=== PATIENT | male | born 1985 | race Asian ===

== ENCOUNTER 2017-10-06 07:06 | Observation (INO) | payer OTHER ==
[2017-10-06] VITALS (7 sets, daily range): BP systolic 100–124; BP diastolic 65–74; PULSE 74–102; TEMP 36.3–38.1; O2SAT 97–100; Ht 162.6 cm; Wt 61.3 kg
[~2017-10-06] VITALS: Ht 162.6 cm; Wt 61.3 kg
[2017-10-06] MEDS ORDERED: ONDANSETRON INJ 2 MG/ML 2 ML VIAL IV STA (07:23)
[2017-10-06] MEDS ORDERED: SODIUM CHLORIDE 0.9% 1000ML 1,000 ML IV STA ×2 (07:23→09:41)
[2017-10-06] MEDS ORDERED: HYDROmorphone INJ 0.5 MG/0.5 ML SYR IV PRN (07:30)
--- NOTE | 2017-10-06 07:53 | EMERGENCY ROOM VISIT NOTE ---
History Report prepared by Carlos Enrique: Frandy Garrett Under the Supervision of: Dr. Cullen Gillespie M.D. First contact with patient: 07:17 Chief Complaint: ABDOMINAL PAIN Stated Complaint: SEVERE ABDOMINAL PAIN Nursing Triage Summary: Pt reports lower abd pain that woke him at 0400. Moved bowels at that time, normal. Went back to bed and woke back up at 0600 with pain. Emesis x 1. Denies nausea at present. Took Tylenol at 0600. History of Present Illness The patient is a 32 year old male who presents to the Emergency Room with complaints of constant lower abdominal pain that began early this morning at 0400, 3.5 hours prior to arrival. He rates his current pain as a 5/[address] his way to the department the patient notes getting nauseous and vomiting on the side of the road, the movement in the car hurt his stomach. He denies any radiation of the pain into his back. The patient notes a similar episode that occurred two months ago but claims that this pain is much worse. Patient denies any associated LOC, headache, fevers, chills, diaphoresis, visual changes, neck pain, chest pain, breathing difficulties, back pain, melena , hematochezia, urinary symptoms, numbness, weakness, lymphadenopathy, rash, or other complaints. Source of History: patient Onset: 3.5 hours [employer]SE [employer] Position: abdomen Timing: constant Associated Symptoms: + vomiting, No back pain Review of Systems See HPI for pertinent positives and negatives. A total of ten systems were reviewed and were otherwise negative. Past Medical & Surgical Patient denies any past medical/surgical histories. Family History Cancer Diabetes mellitus Social History Smoking Status: Never Smoker Housing Status: lives with roommate Occupation Status: employed, [employer] student Current/Historical Medications Scheduled Amoxicillin & Pot Clavulanate (Augmentin 875-125 mg), 875 MG PO BID Scheduled PRN Oxycodone/Acetaminophen 5MG/325MG (Percocet 5MG/325MG), 1-2 TABLETS PO Q4H PRN for Pain Miscellaneous Medications Acetaminophen Tab (Tylenol), 325 MG PO Allergies Coded Allergies: No Known Allergies (Unverified , 10/06/17) Physical Exam Vital Signs Date Time Temp Pulse Resp B/P (MAP) Pulse Ox O2 Delivery O2 Flow Rate FiO2 1/23/18 13:01 90 14 10/06/17 13:01 89 14 103/68 100 10/06/17 13:00 37.1 94 15 103/68 (76) 100 Nasal Cannula 2 10/06/17 12:56 92 12 10/06/17 12:56 90 12 102/60 100 18 12:51 90 13 105/57 100 10/06/17 12:51 90 13 10/06/17 12:50 91 16 105/57 (63) 100 Nasal Cannula 2 10/06/17 12:46 87 17 10/06/17 12:46 87 17 103/67 100 10/06/17 12:41 88 13 114/57 100 10/06/17 12:41 90 13 10/06/17 12:40 92 12 100 10/06/17 12:40 94 12 10/06/17 12:36 100/65 10/06/17 12:35 87 18 10/06/17 12:35 86 18 100 10/06/17 12:31 108/64 10/06/17 12:30 91 17 10/06/17 12:30 93 17 100 10/06/17 12:26 103/66 10/06/17 12:25 96 20 100 10/06/17 12:25 97 20 10/06/17 12:21 110/65 10/06/17 12:20 37.7 95 16 110/65 100 Oxymask 10 10/06/17 12:20 94 17 100 10/06/17 12:20 92 17 10/06/17 10:15 101 18 126/70 96 Room Air 10/06/17 09:22 109 18 118/75 99 Room Air 10/06/17 08:18 94 16 116/79 95 Room Air 10/06/17 08:01 90 10/06/17 07:12 36.7 82 18 101/69 100 Room Air Physical Exam GENERAL: Awake, alert, uncomfortable-appearing, in no distress HENT: Normocephalic, atraumatic. Oropharynx unremarkable. EYES: Normal conjunctiva. Sclera non-icteric. NECK: Supple. No nuchal rigidity. FROM. No JVD. RESPIRATORY: Clear to auscultation. CARDIAC: Regular rate, normal rhythm. Extremities warm and well perfused. Pulses equal. ABDOMEN: Soft, non-distended. Tenderness to palpation with rebounding in the RLQ.. No masses. RECTAL: Deferred. MUSCULOSKELETAL: Chest examination reveals no tenderness. The back is symmetrical on inspection without obvious abnormality. There is no CVA tenderness to palpation. No joint edema. LOWER EXTREMITIES: Calves are equal size bilaterally and non-tender. No edema. No discoloration. NEURO: Normal sensorium. No sensory or motor deficits noted. SKIN: No rash or jaundice noted. Medical Decision & Procedures ER Provider Diagnostic Interpretation: Radiology results as stated below per my review and radiologist interpretation: ABDOMEN AND PELVIS CT WITH IV CONTRAST CT DOSE: 333.15 mGycm HISTORY: Acute right lower quadrant abdominal pain with vomiting. Clinical concern for acute appendicitis. RLQ pain, vomiting. ? appy TECHNIQUE: Multiaxial CT images of the abdomen and pelvis were performed following the use of intravenous contrast. 95 mL Optiray 320 IV contrast was administered. A dose lowering technique was utilized adhering to the principles of ALARA. COMPARISON STUDY: None. FINDINGS: Diaphragmatic based 4 mm nodule of the left lower lobe as seen on image 45 series 3. Minimal dependent subsegmental left basilar atelectasis. There is no pneumatosis or pneumoperitoneum. The imaged inferior cardiac chambers are unremarkable. The liver, gallbladder, spleen, pancreas and adrenal glands are within normal limits. The kidneys, and urinary bladder are unremarkable. There is mild dilation of the distal right ureter, likely reactive secondary to inflammatory changes of the pelvis as below. Prostate is unremarkable. Aorta is normal in course and caliber. No bulky adenopathy. No bowel obstruction. Mild amount of free pelvic fluid is noted in addition to moderate right lower quadrant mesenteric inflammatory change with mildly prominent right lower quadrant mesenteric lymph nodes measuring up to 1.4 x 0.9 cm. The appendix is dilated and fluid-filled with wall thickening and mucosal hyperemia measuring up to 12 mm transversely. No evidence of perforation or right lower quadrant abscess. Soft tissues are unremarkable. Bones appear intact. IMPRESSION: 1. Findings compatible with acute uncomplicated appendicitis. No evidence of abscess or perforation. 2. Mild reactive free pelvic fluid and right lower quadrant mesenteric adenopathy. 3. No bowel obstruction. 4. 4 mm solid pulmonary nodule of the left lower lobe, likely benign. Electronically signed by: Tom Bravo M.D. 10/06/2017 9:32 AM Dictated Date/Time: 10/06/2017 9:22 AM Laboratory Results 10/06/17 07:50 Red Blood Count 5.20, Mean Corpuscular Volume 90.0, Mean Corpuscular Hemoglobin 31.2, Mean Corpuscular Hemoglobin Concent 34.6, Mean Platelet Volume 9.6, Neutrophils (%) (Auto) 87.2, Lymphocytes (%) (Auto) 9.5, Monocytes (%) (Auto) 2.8, Eosinophils (%) (Auto) 0.1, Basophils (%) (Auto) 0.1, Neutrophils # (Auto) 10.51, Lymphocytes # (Auto) 1.15, Monocytes # (Auto) 0.34, Eosinophils # (Auto) 0.01, Basophils # (Auto) 0.01 10/06/17 07:50 Test 10/06/17 07:50 10/06/17 08:00 White Blood Count 12.06 K/uL (4.8-10.8) Red Blood Count 5.20 M/uL (4.7-6.1) Hemoglobin 16.2 g/dL (14.0-18.0) Hematocrit 46.8 % (42-52) Mean Corpuscular Volume 90.0 fL (80-100) Mean Corpuscular Hemoglobin 31.2 pg (25-34) Mean Corpuscular Hemoglobin Concent 34.6 g/dl (32-36) Platelet Count 201 K/uL (130-400) Mean Platelet Volume 9.6 fL (7.4-10.4) Neutrophils (%) (Auto) 87.2 % Lymphocytes (%) (Auto) 9.5 % Monocytes (%) (Auto) 2.8 % Eosinophils (%) (Auto) 0.1 % Basophils (%) (Auto) 0.1 % Neutrophils # (Auto) 10.51 K/uL (1.4-6.5) Lymphocytes # (Auto) 1.15 K/uL (1.2-3.4) Monocytes # (Auto) 0.34 K/uL (0.11-0.59) Eosinophils # (Auto) 0.01 K/uL (0-0.5) Basophils # (Auto) 0.01 K/uL (0-0.2) RDW Standard Deviation 40.8 fL (36.4-46.3) RDW Coefficient of Variation 12.4 % (11.5-14.5) Immature Granulocyte % (Auto) 0.3 % Immature Granulocyte # (Auto) 0.04 K/uL (0.00-0.02) Anion Gap 8.0 mmol/L (3-11) Est Creatinine Clear Calc Drug Dose 93.5 ml/min Estimated GFR () 122.3 Estimated GFR (Non- 105.5 BUN/Creatinine Ratio 19.5 (10-20) Calcium Level 9.5 mg/dl (8.5-10.1) Total Bilirubin 0.8 mg/dl (0.2-1) Direct Bilirubin 0.1 mg/dl (0-0.2) Aspartate Amino Transf (AST/SGOT) 17 U/L (15-37) Alanine Aminotransferase (ALT/SGPT) 24 U/L (12-78) Alkaline Phosphatase 50 U/L (45-117) Total Protein 8.6 gm/dl (6.4-8.2) Albumin 4.4 gm/dl (3.4-5.0) Lipase 189 U/L (73-393) Urine Color YELLOW Urine Appearance CLEAR (CLEAR) Urine pH 7.5 (4.5-7.5) Urine Specific [place] 1.024 (1.000-1.030) Urine Protein NEG (NEG) Urine Glucose (UA) NEG (NEG) Urine Ketones TRACE (NEG) Urine Occult Blood NEG (NEG) Urine Nitrite NEG (NEG) Urine Bilirubin NEG (NEG) Urine Urobilinogen NEG (NEG) Urine Leukocyte Esterase NEG (NEG) Laboratory results reviewed by me Medications Administered Medications (Trade) Dose Ordered Sig/Yogi Route Start Time Stop Time Status Last Admin Dose Admin Sodium Chloride 1,000 ml @ 999 mls/hr Q1H1M STAT IV 10/06/17 07:23 10/06/17 08:23 DC 10/06/17 07:56 999 MLS/HR Ondansetron HCl (Zofran Inj) 4 mg NOW STAT IV 10/06/17 07:23 10/06/17 07:25 DC 10/06/17 07:55 4 MG Hydromorphone HCl (Dilaudid Inj) 0.5 mg Q15M PRN IV 10/06/17 07:30 10/20/17 07:29 10/06/17 07:56 0.5 MG Sodium Chloride 1,000 ml @ 999 mls/hr Q1H1M STAT IV 10/06/17 09:41 10/06/17 10:41 DC 10/06/17 10:31 999 MLS/HR Cefoxitin Sodium 2000 mg/Dextrose 60 ml @ 120 mls/hr TODAY@1000 IV 10/06/17 10:00 10/06/17 10:29 DC 10/06/17 10:14 120 MLS/HR Lidocaine/ Epinephrine (Xylocaine/Epine 1% Inj) 20 ml STK-MED ONCE .ROUTE 10/06/17 10:13 10/06/17 10:14 DC 10/06/17 11:50 11 ML ED Course 0719: The patient was evaluated in room A11. A complete history and physical exam was performed. 0723: Ordered Zofran 4 mg IV, Sodium Chloride 1000 mL @ 999 mL/hr IV. 0730: Ordered Dilaudid 0.5 mg IV. 0941: Ordered Sodium Chloride 1000 mL @ 999 mL/hr IV, Cefoxitin Sodium 2000 mg IV. 0942: I checked on the patient at this time. He is feeling better. 44: I discussed the case with Leighton Harper PA-C. He will evaluate the patient for further treatment. Medical Decision Triage Nursing notes reviewed and agree them. The patient's history was concerning for abdominal pain. Differential diagnosis: Etiologies such as appendicitis, diverticulitis, PUD, biliary pathology, UTI, pancreatitis, obstruction, mesenteric ischemia, aortic pathology, infections, inflammatory bowel disease, renal colic, as well as others were entertained. Physical examination findings: As above. ER treatment provided: IV normal saline boluses IV Zofran IV Dilaudid On reassessment the patient felt better. IV Mefoxin Diagnostics interpreted by me: The labs revealed a mild leukocytosis on CBC. Chemistry panel unremarkable. Imaging studies: CT scan as above The patient has acute appendicitis. Consultation: A consultation was placed with the general surgery team. The case was discussed and diagnostics were reviewed. The patient was evaluated in the ER for further treatment. Blood Pressure Screening Patient's blood pressure: Normal blood pressure Consults Time Called: [phone] Consulting Physician: Leighton Harper PA-C Returned Call: [phone] I discussed the case with Leighton Harper PA-C. He will evaluate the patient for further treatment. Impression Primary Impression: Acute appendicitis Scribe Attestation The scribe's documentation has been prepared under my direction and personally reviewed by me in its entirety. I confirm that the note above accurately reflects all work, treatment, procedures, and medical decision making performed by me. Departure Information Dispostion Being Evaluated By Surgeon Prescriptions Amoxicillin & Pot Clavulanate (Augmentin 875-125 mg) 1 Tab Tab 875 MG PO BID, #10 TAB Prov: Leighton Martienz JR.,RASHAUN 10/06/17 Oxycodone/Acetaminophen 5MG/325MG (PERCOCET 5MG/325MG) Tab 1-2 TABLETS PO Q4H Y for Pain, #15 TAB Prov: Leighton Martinez JR.,ESTEFANYC 10/06/17 Referrals No Doctor, Assigned (PCP) Patient Instructions [facility]
[2017-10-06 08:05] LABS: BASO % 0.1 %; BASO ABS # 0.01 K/uL (0-0.2); EOS % 0.1 %; EOS ABS # 0.01 K/uL (0-0.5); HEMATOCRIT 46.8 % (42-52); HEMOGLOBIN 16.2 g/dL (14.0-18.0); IG# 0.04 K/uL (0.00-0.02); LYMPH % 9.5 %; LYMPH ABS # 1.15 K/uL (1.2-3.4); MEAN CORPUSCULAR HEMOGLOBIN 31.2 pg (25-34); MEAN CORPUSCULAR HGB CONC 34.6 g/dl (32-36); MEAN PLATELET VOLUME 9.6 fL (7.4-10.4); MONO % 2.8 %; MONO ABS # 0.34 K/uL (0.11-0.59); NEUT % 87.2 %; NEUT ABS # 10.51 K/uL (1.4-6.5); PLATELET COUNT 201 K/uL (130-400); RED CELL DISTRIBUTION WIDTH CV 12.4 % (11.5-14.5); RED CELL DISTRIBUTION WIDTH SD 40.8 fL (36.4-46.3); WHITE BLOOD COUNT 12.06 K/uL (4.8-10.8)
[2017-10-06] MEDS ORDERED: ACET325T96 PO (08:17)
[2017-10-06 08:24] LABS: ALBUMIN 4.4 gm/dl (3.4-5.0); CALCIUM 9.5 mg/dl (8.5-10.1); CREATININE 0.95 mg/dl (0.60-1.40); POTASSIUM 3.5 mmol/L (3.5-5.1)
[2017-10-06 08:27] LABS: TOTAL PROTEIN 8.6 gm/dl (6.4-8.2)
[2017-10-06] MEDS ORDERED: OPTIRAY 320 IV PRN (09:30)
--- NOTE | 2017-10-06 09:33 | DIAGNOSTIC IMAGING REPORT ---
ABDOMEN AND PELVIS CT WITH IV CONTRAST CT DOSE: 333.15 mGycm HISTORY: Acute right lower quadrant abdominal pain with vomiting. Clinical concern for acute appendicitis. RLQ pain, vomiting. ? appy TECHNIQUE: Multiaxial CT images of the abdomen and pelvis were performed following the use of intravenous contrast. 95 mL Optiray 320 IV contrast was administered. A dose lowering technique was utilized adhering to the principles of ALARA. COMPARISON STUDY: None. FINDINGS: Diaphragmatic based 4 mm nodule of the left lower lobe as seen on image 45 series 3. Minimal dependent subsegmental left basilar atelectasis. There is no pneumatosis or pneumoperitoneum. The imaged inferior cardiac chambers are unremarkable. The liver, gallbladder, spleen, pancreas and adrenal glands are within normal limits. The kidneys, and urinary bladder are unremarkable. There is mild dilation of the distal right ureter, likely reactive secondary to inflammatory changes of the pelvis as below. Prostate is unremarkable. Aorta is normal in course and caliber. No bulky adenopathy. No bowel obstruction. Mild amount of free pelvic fluid is noted in addition to moderate right lower quadrant mesenteric inflammatory change with mildly prominent right lower quadrant mesenteric lymph nodes measuring up to 1.4 x 0.9 cm. The appendix is dilated and fluid-filled with wall thickening and mucosal hyperemia measuring up to 12 mm transversely. No evidence of perforation or right lower quadrant abscess. Soft tissues are unremarkable. Bones appear intact. IMPRESSION: 1. Findings compatible with acute uncomplicated appendicitis. No evidence of abscess or perforation. 2. Mild reactive free pelvic fluid and right lower quadrant mesenteric adenopathy. 3. No bowel obstruction. 4. 4 mm solid pulmonary nodule of the left lower lobe, likely benign. Electronically signed by: Tom Bravo M.D. 10/06/2017 9:32 AM Dictated Date/Time: 10/06/2017 9:22 AM
[2017-10-06] MEDS ORDERED: CEFOXITIN 2000MG/60 ML D5W IV STA (09:41)
[2017-10-06] MEDS ORDERED: CEFOXITIN IV 2,000 MG in DEXTROSE 5% 50ML 50 ML IV SCH (10:00)
--- NOTE | 2017-10-06 10:05 | History and Physical ---
History & Physical Date & Time of Service: Oct 06, 2017 at 09:58 Chief Complaint: Severe Abdominal Pain Primary Care Physician: No Doctor, Assigned History of Present Illness 32 y/o male with periumbilical pain that woke him from sleep this morning around 0400. Had N/V and increased pain during car ride to the ER. No fevers or chills. [place] fine last night before going to bed. Had regular dinner. Nothing to eat or drink this morning. Past Medical/Surgical History No ongoing medical problems No past surgery Family History Cancer Diabetes mellitus Social History Smoking Status: Never Smoker Occupational Status: No [employer] student Allergies Coded Allergies: No Known Allergies (Unverified , 10/06/17) Home Medications Miscellaneous Medications Acetaminophen Tab (Tylenol), 325 MG PO Review of Systems Constitutional: No fever, No chills Respiratory: No cough, No shortness of breath Abdomen: + pain, + nausea, + vomiting Physical Exam Vital Signs Date Time Temp Pulse Resp B/P (MAP) Pulse Ox O2 Delivery O2 Flow Rate FiO2 10/06/17 09:22 109 18 118/75 99 Room Air 10/06/17 08:18 94 16 116/79 95 Room Air 10/06/17 08:01 90 10/06/17 07:12 36.7 82 18 101/69 100 Room Air General Appearance: WD/WN, no apparent distress ENT: normal ENT inspection Respiratory/Chest: lungs clear, normal breath sounds Cardiovascular: regular rate, rhythm, no edema Abdomen/GI: soft, + tenderness (lower midline to RLQ, no peritoneal signs) Neurologic/Psych: normal mood/affect, oriented x 3 Diagnostics Laboratory Results Results Past 24 Hours Test 10/06/17 07:50 10/06/17 08:00 Range/Units White Blood Count 12.06 4.8-10.8 K/uL Red Blood Count 5.20 4.7-6.1 M/uL Hemoglobin 16.2 14.0-18.0 g/dL Hematocrit 46.8 42-52 % Mean Corpuscular Volume 90.0 80-100 fL Mean Corpuscular Hemoglobin 31.2 25-34 pg Mean Corpuscular Hemoglobin Concent 34.6 32-36 g/dl Platelet Count 201 130-400 K/uL Mean Platelet Volume 9.6 7.4-10.4 fL Neutrophils (%) (Auto) 87.2 % Lymphocytes (%) (Auto) 9.5 % Monocytes (%) (Auto) 2.8 % Eosinophils (%) (Auto) 0.1 % Basophils (%) (Auto) 0.1 % Neutrophils # (Auto) 10.51 1.4-6.5 K/uL Lymphocytes # (Auto) 1.15 1.2-3.4 K/uL Monocytes # (Auto) 0.34 0.11-0.59 K/uL Eosinophils # (Auto) 0.01 0-0.5 K/uL Basophils # (Auto) 0.01 0-0.2 K/uL RDW Standard Deviation 40.8 36.4-46.3 fL RDW Coefficient of Variation 12.4 11.5-14.5 % Immature Granulocyte % (Auto) 0.3 % Immature Granulocyte # (Auto) 0.04 0.00-0.02 K/uL Sodium Level 135 136-145 mmol/L Potassium Level 3.5 3.5-5.1 mmol/L Chloride Level 102 98-107 mmol/L Carbon Dioxide Level 26 21-32 mmol/L Anion Gap 8.0 3-11 mmol/L Blood Urea Nitrogen 19 7-18 mg/dl Creatinine 0.95 0.60-1.40 mg/dl Est Creatinine Clear Calc Drug Dose 93.5 ml/min Estimated GFR () 122.3 Estimated GFR (Non- 105.5 BUN/Creatinine Ratio 19.5 10-20 Random Glucose 111 70-99 mg/dl Calcium Level 9.5 8.5-10.1 mg/dl Total Bilirubin 0.8 0.2-1 mg/dl Direct Bilirubin 0.1 0-0.2 mg/dl Aspartate Amino Transf (AST/SGOT) 17 15-37 U/L Alanine Aminotransferase (ALT/SGPT) 24 12-78 U/L Alkaline Phosphatase 50 45-117 U/L Total Protein 8.6 6.4-8.2 gm/dl Albumin 4.4 3.4-5.0 gm/dl Lipase 189 73-393 U/L Urine Color YELLOW Urine Appearance CLEAR CLEAR Urine pH 7.5 4.5-7.5 Urine Specific [place] 1.024 1.000-1.030 Urine Protein NEG NEG Urine Glucose (UA) NEG NEG Urine Ketones TRACE NEG Urine Occult Blood NEG NEG Urine Nitrite NEG NEG Urine Bilirubin NEG NEG Urine Urobilinogen NEG NEG Urine Leukocyte Esterase NEG NEG Diagnostic Radiology ABDOMEN AND PELVIS CT WITH IV CONTRAST CT DOSE: 333.15 mGycm HISTORY: Acute right lower quadrant abdominal pain with vomiting. Clinical concern for acute appendicitis. RLQ pain, vomiting. ? appy TECHNIQUE: Multiaxial CT images of the abdomen and pelvis were performed following the use of intravenous contrast. 95 mL Optiray 320 IV contrast was administered. A dose lowering technique was utilized adhering to the principles of ALARA. COMPARISON STUDY: None. FINDINGS: Diaphragmatic based 4 mm nodule of the left lower lobe as seen on image 45 series 3. Minimal dependent subsegmental left basilar atelectasis. There is no pneumatosis or pneumoperitoneum. The imaged inferior cardiac chambers are unremarkable. The liver, gallbladder, spleen, pancreas and adrenal glands are within normal limits. The kidneys, and urinary bladder are unremarkable. There is mild dilation of the distal right ureter, likely reactive secondary to inflammatory changes of the pelvis as below. Prostate is unremarkable. Aorta is normal in course and caliber. No bulky adenopathy. No bowel obstruction. Mild amount of free pelvic fluid is noted in addition to moderate right lower quadrant mesenteric inflammatory change with mildly prominent right lower quadrant mesenteric lymph nodes measuring up to 1.4 x 0.9 cm. The appendix is dilated and fluid-filled with wall thickening and mucosal hyperemia measuring up to 12 mm transversely. No evidence of perforation or right lower quadrant abscess. Soft tissues are unremarkable. Bones appear intact. IMPRESSION: 1. Findings compatible with acute uncomplicated appendicitis. No evidence of abscess or perforation. 2. Mild reactive free pelvic fluid and right lower quadrant mesenteric adenopathy. 3. No bowel obstruction. 4. 4 mm solid pulmonary nodule of the left lower lobe, likely benign. Electronically signed by: Tom Bravo M.D. 10/06/2017 9:32 AM Dictated Date/Time: 10/06/2017 9:22 AM Impression Assessment and Plan Acute appendicitis Exam and CT consistent with appendicitis. Plan for laparoscopic appendectomy this morning by .
[2017-10-06] MEDS ORDERED: FENTANYL CITRATE INJ 50 MCG/1 ML 2 ML VIAL ONE ×2 (10:13)
[2017-10-06] MEDS ORDERED: LIDOCAINE/EPINEPHRINE 1% 20 ML VIAL ONE (10:13)
[2017-10-06] MEDS ORDERED: MIDAZOLAM HCL 1 MG/ML 2ML VIAL ONE (10:13)
[2017-10-06] MEDS ORDERED: LACTATED RINGER'S 1000ML 1,000 ML IV SCH ×2 (10:15→14:30)
[2017-10-06] MEDS ORDERED: OXYC-57 PO (10:16)
--- NOTE | 2017-10-06 10:17 | Discharge Instructions ---
Discharge Instructions Date of Service Oct 06, 2017. Admission Reason for Admission: Severe Abdominal Pain Discharge Discharge Diagnosis / Problem: laparoscopic appendectomy Discharge Goals Goal(s): Decrease discomfort Activity Recommendations Activity Limitations: as noted below Lifting Limitations: no more than 10 pounds Shower/Bathe: tomorrow Driving or Machine Use: resume 3 days after discharge . Instructions / Follow-Up Instructions / Follow-Up Dr. Posada in 1-2 weeks, call [phone] to schedule, [address] Current [facility] Diet Patient's current hospital diet: Discharge Diet Recommended Diet: Regular Diet Pending Studies Studies pending at discharge: no Medical Emergencies . Who to Call and When: Medical Emergencies: If at any time you feel your situation is an emergency, please call 911 immediately. . Non-Emergent Contact Non-Emergency issues call your: Surgeon Call Non-Emergent contact if: you have a fever, temperature is above 101.5, your pain is not controlled, wound has increased drainage, wound has increased redness, wound has increased pain, you have any medication questions . "Provider Documentation" section prepared by Leighton Martinez. . VTE Core Measure Inpt VTE Proph given/why not?: SCD's [place] Drug Monitoring Program Search Results: no issues identified
--- NOTE | 2017-10-06 10:25 | History & Physical Bridge Note ---
H&P Re-Evaluation Bridge Note: I have examined the patient, reviewed the History & Physical and in the interval since the performance of the History & Physical I have noted the following changes of clinical significance: No changes noted pt examined point tenderness and rebound rlq portia Narayanan's point plan lap appy possible open r and c explained to pt
[2017-10-06] MEDS ORDERED: FENTANYL CITRATE INJ 50 MCG/1 ML 2 ML VIAL IV PRN (11:30)
[2017-10-06] MEDS ORDERED: LABETALOL HCL IV 5 MG/ML 20ML IV PRN (11:30)
[2017-10-06] MEDS ORDERED: ONDANSETRON INJ 2 MG/ML 2 ML VIAL IV PRN ×2 (11:30→12:15)
[2017-10-06] MEDS ORDERED: ATROPINE SULFATE 0.1 MG/ML 5ML SYR IV PRN (11:30)
[2017-10-06] MEDS ORDERED: HYDROmorphone INJ 1 MG/ML SYR IV PRN (11:30)
[2017-10-06] MEDS ORDERED: EpHEDrine SULFATE INJ 50 MG/ML AMP IV PRN (11:30)
[2017-10-06] MEDS ORDERED: MEPERIDINE HCL 25 MG/ML CARP IV PRN (11:30)
[2017-10-06] MEDS ORDERED: NEOSTIGMINE METHYLSULFATE 5 MG/5 ML SYR ONE (11:32)
[2017-10-06] MEDS ORDERED: GLYCOPYRROLATE INJ 0.2 MG/ML VIAL ONE (11:32)
[2017-10-06] MEDS ORDERED: PROPOFOL IV EMULSION 10 MG/ML 20 ML VIAL IV ONE (11:32)
[2017-10-06] MEDS ORDERED: LIDOCAINE HCL 2% 2 ML VIAL (20MG/ML) ONE (11:32)
[2017-10-06] MEDS ORDERED: ROCURONIUM BROMIDE 10 MG/ML 5 ML VIAL IV ONE (11:32)
[2017-10-06] MEDS ORDERED: DEXAMETHASONE SOD INJ 4 MG/ML VIAL ONE (11:32)
[2017-10-06] MEDS ORDERED: ONDANSETRON INJ 2 MG/ML 2 ML VIAL ONE (11:32)
--- NOTE | 2017-10-06 11:58 | [facility] Post Operative Brief Note ---
Immediate Operative Summary Operative Date Oct 06, 2017. Pre-Operative Diagnosis Acute Appendicitis Post-Operative Diagnosis Acute Appendicitis, Incarcerated Umbilical Hernia Procedure(s) Performed Laparoscopic Appendectomy, Repair of Incarcerated Umbilical Hernia Surgeon Dr. Blake Posada Javascript Ui Developer Surgeon(s) Leighton Martinez PA-C Estimated Blood Loss 5ml Findings Consistent with Post-Op Diagnosis acute non ruptured appendicitis with cloudy peritoneal fluid and inc small Specimens Permanent: A.) Appendix B.) Incarcerated Hernia Sac Culure: 1.) Peritoneal Fluid Anesthesia Type General
[2017-10-06] MEDS ORDERED: AMOX875T PO (12:10)
[2017-10-06] MEDS ORDERED: ACETAMINOPHEN 325 MG TAB PO PRN (12:15)
[2017-10-06] MEDS ORDERED: MoRPHine SULFATE 4 MG/ML 1 ML CARP\\VIAL IV PRN (12:15)
[2017-10-06] MEDS ORDERED: OXYCODONE/ACETAMINOPHEN 5-325 TAB PO PRN (12:15)
--- NOTE | 2017-10-06 13:14 | Anesthesiology Progress Note ---
Anesthesia Post Op Note Date & Time Oct 06, 2017 at 13:13 Vital Signs Pain Intensity: 0 Vital Signs Past 12 Hours Date Time Temp Pulse Resp B/P (MAP) Pulse Ox O2 Delivery O2 Flow Rate FiO2 10/06/17 13:01 90 14 10/06/17 13:01 89 14 103/68 100 10/06/17 13:00 37.1 94 15 103/68 (76) 100 Nasal Cannula 2 10/06/17 12:56 92 12 10/06/17 12:56 90 12 102/60 100 10/06/17 12:51 90 13 105/57 100 10/06/17 12:51 90 13 10/06/17 12:50 91 16 105/57 (63) 100 Nasal Cannula 2 10/06/17 12:46 87 17 10/06/17 12:46 87 17 103/67 100 10/06/17 12:41 88 13 114/57 100 10/06/17 12:41 90 13 10/06/17 12:40 92 12 100 10/06/17 12:40 94 12 10/06/17 12:36 100/65 10/06/17 12:35 87 18 10/06/17 12:35 86 18 100 10/06/17 12:31 108/64 10/06/17 12:30 91 17 10/06/17 12:30 93 17 100 10/06/17 12:26 103/66 10/06/17 12:25 96 20 100 10/06/17 12:25 97 20 10/06/17 12:21 110/65 10/06/17 12:20 37.7 95 16 110/65 100 Oxymask 10 10/06/17 12:20 94 17 100 10/06/17 12:20 92 17 10/06/17 10:15 101 18 126/70 96 Room Air 10/06/17 09:22 109 18 118/75 99 Room Air 10/06/17 08:18 94 16 116/79 95 Room Air 10/06/17 08:01 90 10/06/17 07:12 36.7 82 18 101/69 100 Room Air Notes Mental Status: alert / awake / arousable, participated in evaluation Pt Amnestic to Procedure: Yes Nausea / Vomiting: adequately controlled Pain: adequately controlled Airway Patency, RR, SpO2: stable & adequate BP & HR: stable & adequate Hydration State: stable & adequate Anesthetic Complications: no major complications apparent
[2017-10-06] MEDS ORDERED: IV FLUIDS COMPLETED PRN (14:00)
--- NOTE | 2017-10-06 15:01 | OPERATIVE REPORT ---
DATE OF OPERATION: 10/06/2017 PREOPERATIVE DIAGNOSIS: Acute appendicitis. POSTOPERATIVE DIAGNOSIS: Acute appendicitis, non-ruptured with cloudy peritoneal fluid, incarcerated umbilical hernia. PROCEDURE: Laparoscopic appendectomy, closure incarcerated umbilical hernia repair. SURGEON: Dr. Posada. HIMS MANAGER: Phillip Martinez PA-C. OPERATION AND FINDINGS: SUMMARY: The patient was brought into the operating room theater. The abdomen was prepped and shaved properly with Betadine solution and properly draped. We at this point had a timeout and preoperative antibiotics had been given. We made a small incision supraumbilically. The patient has some very minimal deformity in the umbilical area, was not sure whether or not it was umbilical hernia but we stayed away from that more cephalad, a transverse incision was made. Veress needle was introduced followed by CO2 followed by 5 mm trocar. Point of entry inspected and no injury identified. At this point, we looked in right lower quadrant, could not see the appendix. We placed a 5 mm right upper quadrant port with preemptive local analgesia 1% Xylocaine. Using these 2 ports, I was able to move the omentum which showed an acutely inflamed, thickened appendix. Could not identify the base at this point. At this point I converted the 5 mm umbilical port by enlarging the incision to an 11 mm trocar and then used that [address] in the left lower quadrant with preemptive local analgesic. The camera was placed in the left lower quadrant. At this point, used the umbilical in the right upper quadrant port to elevate the appendix was acutely inflamed. When we were doing this, we could see that the patient had some cloudy fluid down just around the cecal area that we suctioned out and cultured. The mesoappendix going to the appendix was pretty inflamed. I did not see any rupture, although in elevating the appendix there seemed to inferior and onto the cecal an area of some blue discoloration, not sure the etiology of that was, we did see any true perforation. At this point, once we had elevated, we took down the mesoappendix. There was a small artery in the mesoappendix that was doubly clipped and divided, a small oozer was similarly identified, most of our dissection was done bluntly until we were able to elevate the appendix at the cecal base. The appendix was fairly wide all the way to the cecal base. Therefore, at this point we placed a purple load of LORENZA, brought onto the field and resected the appendix with part of the cecum. There were some attachments still at the staple line. We used that as an anchor to inspect the staple line and also visualized the area where we initially divided some of the mesentery. A small bleeder was cauterized in that area. The suture line or staple line did not show any evidence of any bleeding. We then divided the suspension of the staple line which was minimal, placed in an Endopouch in the umbilical opening and extracted the appendix was quite thickened. We took out the trocar first and then we were able just to remove the appendix by dilating the opening with a Nimo clamp. At this point, I held the finger in the umbilical area, reestablished pneumoperitoneum, suction out. The patient had been placed in the reverse Trendelenburg position for the initial port in the procedure but then reversed him in the reverse Trendelenburg prior to taking the appendix, we irrigated the abdomen copiously, suctioned out the pelvic area. At this point, we placed a camera in the right upper quadrant port to visualize the umbilical opening and there was no bleeding identified. Individual trocars removed. The umbilical opening was then inspected. At this point, we identified that the patient did have a small umbilical hernia, unfortunately came right along where we had placed the 5 mm trocar just inferiorly. A small opening was created between that and a web of fascia between the umbilical opening and the trocar site was present. We at this point removed the incarcerated tissue, united to 2 opening in 1 and closed with interrupted 0 Vicryl interrupted suture [id number] x2. Subcutaneous tissue was brought back with 4-0 Monocryl. Steri-Strips applied. The procedure was tolerated well by the patient. Estimated blood loss approximately 5 mL. The patient was taken to recovery room in good condition. I attest to the content of the Intraoperative Record and any orders documented therein. Any exception s are noted below.
--- NOTE | 2017-10-06 17:15 | Surgery Progress Note ---
Surgery Progress Note Date of Service Oct 06, 2017. Subjective + feeling well, + pain controlled (not taken any analgesics post op), No nausea Objective Vital Signs: Date Time Temp Pulse Resp B/P (MAP) Pulse Ox O2 Delivery O2 Flow Rate FiO2 10/06/17 16:51 36.3 10/06/17 16:17 37.7 74 15 105/67 (80) 97 Room Air 10/06/17 15:13 37.7 102 18 124/74 (91) 99 Nasal Cannula 2.0 10/06/17 14:15 84 16 100/65 (77) 100 Nasal Cannula 2.0 10/06/17 13:45 37.7 87 16 104/67 (79) 99 Nasal Cannula 2.0 10/06/17 13:15 97 Nasal Cannula 2.0 10/06/17 13:15 38.1 94 16 102/65 97 Nasal Cannula 2.0 10/06/17 13:15 38.1 95 16 102/65 (77) 97 Nasal Cannula 2.0 10/06/17 13:01 90 14 10/06/17 13:01 89 14 103/68 100 10/06/17 13:00 37.1 94 15 103/68 (76) 100 Nasal Cannula 2 10/06/17 12:56 92 12 10/06/17 12:56 90 12 102/60 100 10/06/17 12:51 90 13 105/57 100 10/06/17 12:51 90 13 10/06/17 12:50 91 16 105/57 (63) 100 Nasal Cannula 2 10/06/17 12:46 87 17 10/06/17 12:46 87 17 103/67 100 10/06/17 12:41 88 13 114/57 100 10/06/17 12:41 90 13 10/06/17 12:40 92 12 100 10/06/17 12:40 94 12 10/06/17 12:36 100/65 10/06/17 12:35 87 18 10/06/17 12:35 86 18 100 10/06/17 12:31 108/64 10/06/17 12:30 91 17 10/06/17 12:30 93 17 100 10/06/17 12:26 103/66 10/06/17 12:25 96 20 100 10/06/17 12:25 97 20 10/06/17 12:21 110/65 10/06/17 12:20 37.7 95 16 110/65 100 Oxymask 10 10/06/17 12:20 94 17 100 10/06/17 12:20 92 17 10/06/17 10:15 101 18 126/70 96 Room Air 10/06/17 09:22 109 18 118/75 99 Room Air 10/06/17 08:18 94 16 116/79 95 Room Air 10/06/17 08:01 90 10/06/17 07:12 36.7 82 18 101/69 100 Room Air Abdomen: soft Incision(s): clean, drainage (minimal dry blood at umbilical incision) Laboratory Results: Results Past 24 Hours Test 10/06/17 07:50 10/06/17 08:00 Range/Units White Blood Count 12.06 4.8-10.8 K/uL Red Blood Count 5.20 4.7-6.1 M/uL Hemoglobin 16.2 14.0-18.0 g/dL Hematocrit 46.8 42-52 % Mean Corpuscular Volume 90.0 80-100 fL Mean Corpuscular Hemoglobin 31.2 25-34 pg Mean Corpuscular Hemoglobin Concent 34.6 32-36 g/dl Platelet Count 201 130-400 K/uL Mean Platelet Volume 9.6 7.4-10.4 fL Neutrophils (%) (Auto) 87.2 % Lymphocytes (%) (Auto) 9.5 % Monocytes (%) (Auto) 2.8 % Eosinophils (%) (Auto) 0.1 % Basophils (%) (Auto) 0.1 % Neutrophils # (Auto) 10.51 1.4-6.5 K/uL Lymphocytes # (Auto) 1.15 1.2-3.4 K/uL Monocytes # (Auto) 0.34 0.11-0.59 K/uL Eosinophils # (Auto) 0.01 0-0.5 K/uL Basophils # (Auto) 0.01 0-0.2 K/uL RDW Standard Deviation 40.8 36.4-46.3 fL RDW Coefficient of Variation 12.4 11.5-14.5 % Immature Granulocyte % (Auto) 0.3 % Immature Granulocyte # (Auto) 0.04 0.00-0.02 K/uL Sodium Level 135 136-145 mmol/L Potassium Level 3.5 3.5-5.1 mmol/L Chloride Level 102 98-107 mmol/L Carbon Dioxide Level 26 21-32 mmol/L Anion Gap 8.0 3-11 mmol/L Blood Urea Nitrogen 19 7-18 mg/dl Creatinine 0.95 0.60-1.40 mg/dl Est Creatinine Clear Calc Drug Dose 93.5 ml/min Estimated GFR () 122.3 Estimated GFR (Non- 105.5 BUN/Creatinine Ratio 19.5 10-20 Random Glucose 111 70-99 mg/dl Calcium Level 9.5 8.5-10.1 mg/dl Total Bilirubin 0.8 0.2-1 mg/dl Direct Bilirubin 0.1 0-0.2 mg/dl Aspartate Amino Transf (AST/SGOT) 17 15-37 U/L Alanine Aminotransferase (ALT/SGPT) 24 12-78 U/L Alkaline Phosphatase 50 45-117 U/L Total Protein 8.6 6.4-8.2 gm/dl Albumin 4.4 3.4-5.0 gm/dl Lipase 189 73-393 U/L Urine Color YELLOW Urine Appearance CLEAR CLEAR Urine pH 7.5 4.5-7.5 Urine Specific [place] 1.024 1.000-1.030 Urine Protein NEG NEG Urine Glucose (UA) NEG NEG Urine Ketones TRACE NEG Urine Occult Blood NEG NEG Urine Nitrite NEG NEG Urine Bilirubin NEG NEG Urine Urobilinogen NEG NEG Urine Leukocyte Esterase NEG NEG Microbiology Results 10/06/17 Gram Stain, Received Pending 10/06/17 Bacterial Culture, Received Pending Assessment & Plan stable s/p lap appy ok for discharge if tolerates dinner
[2017-10-06] MEDS ORDERED: AMOXICILLIN/CLAVULANATE TAB 875 MG TAB PO SCH (17:45)
--- NOTE | 2017-10-09 12:34 | DISCHARGE SUMMARY ---
PRIMARY DISCHARGE DIAGNOSES: 1. Acute appendicitis. 2. Incarcerated umbilical hernia. PROCEDURE PERFORMED: Laparoscopic appendectomy and repair of incarcerated umbilical hernia. HOSPITAL COURSE: The patient is a 32-year-old male who presented to the Emergency Department with a complaint of abdominal pain that started a few hours earlier. His white count was 12,000. CT was consistent with acute appendicitis. He was taken to the operating room that morning for laparoscopic appendectomy. Procedure was well tolerated. He was transferred to the surgical floor for observation. During the day, he was able to tolerate an advancing diet. He had not taken any analgesics postoperatively. He was stable for discharge that evening. DISCHARGE INSTRUCTIONS: Discharge home. Follow up with Dr. Posada in 1 week. DISCHARGE MEDICATIONS: Percocet 1-2 tablets every 4 hours as needed, Augmentin 875 mg p.o. b.i.d. x5 and will hold additional Tylenol while he is taking the Percocet.
== END 2017-10-06 20:20 | disposition home or self-care (01) ==
LOC: C.EDB 07:08 → C.MSW 12:13 → ENRESERV 12:44 → CANRESERV 12:44 → ENRESERV 12:50
PROVIDERS: ADMIT Surgery; ATTEND Surgery
DX: K36 Other appendicitis (principal); K42.9 Umbilical hernia without obstruction or gangrene; Z80.9 Family history of malignant neoplasm, unspecified; Z83.3 Family history of diabetes mellitus